=== PATIENT | female | born 1975 | race Caucasian/White ===

== ENCOUNTER 2016-10-11 05:31 | Inpatient (IN) | payer BC ==
--- NOTE | 2016-10-10 22:19 | PCM.LDHP ---
L&D History of Present Illness - General Date of Service: 10/10/16 Admit Problem/Dx: Admission Diagnosis/Problem Admission Diagnosis/Problem 10/10/16 22:01 39-4/7 week intrauterine -breech presentation Source of Information: Patient History Limitations: Reports: No Limitations - History of Present Illness Introduction:: Yara is a 41-year-old 1 para 0 white female who is due on 10/14/2016 with a stone, viable, intrauterine . She was seen on 10/08/2016 and found to have a baby in a breech presentation on ultrasound done for biophysical profile. Discussion was held with patient concerning alternatives of delivery including vaginal breech delivery, external cephalic version with cephalic delivery if successful and primary lower uterine segment transverse section. The options, the risks, benefits, limitations and follow-up were all discussed in detail with the patient and her significant other. They appear to understand and wish to proceed with a primary section. 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 Patient is using no control to time conception. She has cycles that are every 28 days. Menarche age 12. 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 Surgery was done to remove a venereal warts. has been relatively unremarkable. She has risk factors of gastric bypass surgery, group B strep screen positive, history of smoking in early , O- blood type and an abnormal Pap smear early on. She is made good fundal height growth during the course of the with her last fundal height being at 39 cm. Weight gain has been from approximately 186 pounds to 227 pounds for a 41 pound weight gain. Her vital signs of in stable until the day prior to the section which time they were borderline normal. Her laboratory testing in includes blood which is O- with a negative antibody screen. First trimester laboratory testing showed hemoglobin 13.7 and a platelet count of 214,000. She is rubella immune. RPR is nonreactive. Hepatitis B and HIV assays were both negative. Gonorrhea and chlamydia tests were negative. Second trimester laboratory tests included a hemoglobin of 12.8normal platelet counts of 165,000. Patient had RhoGAM given on 07/08/2018. Group B strep screen is positive. Allergies: Sulfa drugs, dust, animal-dander/dogs. Pollan, mold. Medications: 1. Desvenlaxine succinate ER 50 mg tablets daily 2. Omeprazole 20 mg delayed release when necessary 3. Advair discus 35800 micrograms/dose inhaler duration aerosol powder breath activated 4. Tylenol 325 mg orally daily. 5. Zyrtec 10 mg daily 6. B complex vitamins 7. Multivitamins 8. Iron 4 months iron sulfate 325 mg daily 9. Vitamin D 3 tablets Past medical history: 1. Obesitystatus post gastric bypass surgery 2007 and prepped 2. Prediabetic history 3. Depressionon medication 4. Transfusion 2 units of blood 2005 after panniculectomy 5. Asthma 6. History of abnormal Pap smear 2006gentle warts removed Past surgical history: Gastric bypass surgery 2004 2. Gallbladder surgery 2004. 3. Panniculectomy 2005. 4. Oral surgery 1992. Family history: mother is alive with history of atrial fibrillation. Dad is alive with hypertension. One brother is alive and well. Maternal grandmother alive and well but has had some heart disease problems. Internal grandmothers old age. Paternal grandfather secondary to stroke and ruptured appendectomy. No bleeding, chronic, anesthesia her prepregnancy problems noted in the family Social history patient is single, lives in [place]. 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 She does not use any significant amounts of alcohol, drugs or tobacco. She had smoked in the early part of the . Review of systems: Skin negative patient has acne scarring on her face. Cardiovascular-unremarkableno history of exercise intolerance or chest pain Respiratory no asthma symptoms of significance noted now. No infectious symptoms noted. Breasts -deferred at this time having been done at the time of her first visit and found to be normal. Patient does plan to nurse. Abdomen is protruded principally with fundal height of 39 cm, baby in a breech presentation. This is confirmed by ultrasound with time of her last biophysical profile Cervical exam shows cervix to be 2 cm, 80% effaced, soft, posterior, -3 Extremities neurological exam shows varicosities in bilateral lower extremities , some edema is noted. Physical exam on last evaluation clinic patients blood pressure was 130/84- weight was 227, heart rate 141. Her weight at first visit was 186 with height of 5 feet 8 inches in a body mass index of 25.8. In general the patient is a well-developed, well-nourished, pleasant female stated age in no acute distress. Skin is warm and dry without lesions HEENT, neck and back Macoupin's Lungs are clear with good breath sounds in all lung warren. Cardiovascular exam shows regular and rhythm. Abdomen is protruded principally final of 39 cm. Baby and breech presentation. Cervix as above. Extremities neurological exam with the varicosities noted and some edema present. Assessment: 1. 39-4/7 week intrauterine , breech presentation by ultrasound done for presentation on 10/09/2007. We'll check patient's presentation with ultrasound on the morning of surgery 2. Risk factors for surgery include history of previous surgery, obesity. 3. risk factors include history of obesity, Rh- status, depression history, asthma history, status post bariatric surgery 4. Patient desires to nurse 5. Patient has selected a regional block-spinal block-4 anesthesia. Plan: 1. Primary low uterine segment transverse section through a high fan still skin scar which is actually her panniculectomy scar. The procedure, risks , benefits, potential complications including anesthesia concerns, bleeding, infection, injury, blood clots, DVT are all discussed with patient. She appears to understand, which proceed and signed the consent. 2. DVT prophylaxis with SCDs 3. Infection prophylaxis with Ancef 2 g IV preoperatively. 4. 4. Poor Irwin behavior 5. Laborer Driver be present for delivery. 6. Preoperative diagnoses consist of CBC, type and screen, and urinalysis. - Related Data Allergies/Adverse Reactions: Allergies Allergy/AdvReac Type Severity Reaction Status Date / Time pollen extracts Allergy Cannot Verified 08/02/15 19:13 Remember Sulfa (Sulfonamide Allergy Hives Verified 08/02/15 19:13 Antibiotics) Home Medications: Home Meds Desvenlafaxine [Pristiq] 100 mg PO DAILY 05/04/15 [History] Ferrous Sulfate [Iron] 1 tab PO DAILY 05/04/15 [History] Fluticasone/Salmeterol [Advair 100-50] 1 puff INH BID 05/04/15 [History] lamoTRIgine [Lamictal] 200 mg PO BID 05/04/15 [History] Past Medical History HEENT History: Reports: Impaired Vision Respiratory History: Reports: Asthma Psychiatric History: Reports: Anxiety, Depression Other Psychiatric History: RECEIVING TREATMENT Hematologic History: Reports: Anemia, Iron Deficiency - Infectious Disease History Infectious Disease History: Reports: Chicken Pox - Past Surgical History GI Surgical History: Reports: Bariatric Procedure, Cholecystectomy Social & Family History - Family History Family Medical History: Noncontributory - Tobacco Use Smoking Status *Q: Light Tobacco Smoker (Smokes approximately 10 cigarettes per day.) Years of Tobacco use: 7 Packs/Tins Daily: 0.5 - Recreational Drug Use Recreational Drug Use: No - Living Situation & Occupation Occupation: Employed H&P Review of Systems - Review of Systems: Review Of Systems: See Below L&D Exam - Exam Exam: See Below - Vital Signs Weight: 77.111 kg Problem List Initiated/Reviewed/Updated: Yes Assessment/Plan Comment:: Assessment: 1. 39-4/7 week intrauterine , breech presentation, desire for primary lower uterine segment transverse section. 2. Risk factors for the including obesity, history of depression, history of gastric bypass surgery, history of asthma. 3. Patient desires nurse 4. Patient is up-to-date concerning her labs Plan: 1. Primary lower uterine segment transverse section through Pfannenstiel skin incision. New graft 2. DVT prophylaxis SCDs 3. Infection prophylaxis with Ancef 2 g IV preop 4. Routine preoperative labs including CBC, type and screen, urinalysis.
[~2016-10-11 05:31] MED LIST: Lactated Ringers 1,000 ML IV SCH; Sodium Chloride 0.9% 10 ML Syringe FLUSH PRN
[2016-10-11] MEDS ORDERED: Bupivacaine 0.5% 30 ML SDV ONE (06:50)
[2016-10-11] MEDS ORDERED: ceFAZolin 2 GM in Premix Bag 1 BAG IV ONE (07:00)
[2016-10-11] MEDS ORDERED: Citric Acid/Sodium Citrate Solution 30 ML Cup PO ONE (07:00)
[2016-10-11] MEDS ORDERED: Metoclopramide 10 MG/2 ML SDV IVPUSH ONE (07:00)
[2016-10-11] MEDS ORDERED: Ketorolac 30 MG/ML SDV ONE (07:11)
[2016-10-11] MEDS ORDERED: Ondansetron 4 MG/2 ML SDV ONE (07:11)
[2016-10-11] MEDS ORDERED: Oxytocin 10 Units/1 ML SDV ONE (07:11)
[2016-10-11] MEDS ORDERED: ceFAZolin 1 GM Vial ONE (07:12)
[2016-10-11] MEDS ORDERED: Morphine PF 10 MG/10 ML SDV ONE (07:12)
--- NOTE | 2016-10-11 07:27 | PCM.PREANE ---
Preanesthetic Assessment - Procedure Proposed Procedure: section - Anesthesia/Transfusion/Family Hx Anesthesia History: Prior Anesthesia Without Reaction Family History of Anesthesia Reaction: No Transfusion History: Prior Transfusion Without Reaction Intubation History: Unknown - Review of Systems General: Chills (Chilled this AM) Pulmonary: Shortness of Breath, Wheezing, Cough, Other (Asthma) Cardiovascular: No Symptoms Gastrointestinal: Diarrhea (D/t ), Other (GERD d/t ) Neurological: Headache (Current headache) Other: Reports: Depression, Anxiety - Physical Assessment NPO Status Date: 10/10/16 NPO Status Time: 19:30 O2 Sat by Pulse Oximetry: 100 Respiratory Rate: 16 Vital Signs: Last Vital Signs Temp 36.6 C 10/11/16 00:41 Pulse 67 10/11/16 00:41 Resp 16 10/11/16 00:41 BP 129/86 10/11/16 00:41 Pulse Ox 100 10/11/16 00:41 Height: 1.73 m Weight: 102.965 kg ASA Class: 2 Mental Status: Alert & Oriented x3 Airway Class: Mallampati = 1 Dentition: Reports: Normal Dentition Thyro-Mental Finger Breadths: 3 Mouth Opening Finger Breadths: 3 ROM/Head Extension: Full Lungs: Clear to auscultation, Normal respiratory effort Cardiovascular: Regular Rate, Regular Rhythm, No Murmurs - Lab Values: Platelets 170, labs reviewed and ok to proceed - Allergies Allergies/Adverse Reactions: Allergies Allergy/AdvReac Type Severity Reaction Status Date / Time pollen extracts Allergy Cannot Verified 08/02/15 19:13 Remember Sulfa (Sulfonamide Allergy Hives Verified 08/02/15 19:13 Antibiotics) - Acknowledgements Anesthesia Type Planned: Spinal Pt an Appropriate Candidate for the Planned Anesthesia: Yes Alternatives and Risks of Anesthesia Discussed w Pt/Guardian: Yes Pt/Guardian Understands and Agrees with Anesthesia Plan: Yes PreAnesthesia Questionnaire HEENT History: Reports: Impaired Vision, Other (See Below) Other HEENT History: wears glasses Respiratory History: Reports: Asthma, Other (See Below) Other 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 Pt ahs not seen Dr Garcia yet Endocrine/Metabolic History: Reports: Other (See Below) Other Endocrine/Metabolic History: pre DM before gastric surgery Hematologic History: Reports: Anemia, Blood Transfusion(s), Iron Deficiency - Infectious Disease History Infectious Disease History: Reports: Chicken Pox - Past Surgical History GI Surgical History: Reports: Bariatric Procedure, Cholecystectomy Dermatological Surgical History: Reports: None - SUBSTANCE USE Tobacco Use Within Last Twelve Months: Cigarettes Days Per Week of Alcohol Use: 0 Number of Drinks Per Day: 0 Total Drinks Per Week: 0 Recreational Drug Use History: No - HOME MEDS Home Medications: Home Meds Desvenlafaxine [Pristiq] 100 mg PO DAILY 05/04/15 [History] Ferrous Sulfate [Iron] 1 tab PO DAILY 05/04/15 [History] Fluticasone/Salmeterol [Advair 100-50] 1 puff INH BID 05/04/15 [History] lamoTRIgine [Lamictal] 200 mg PO BID 05/04/15 [History] - CURRENT (IN HOUSE) MEDS Current Meds: Current Medications Lactated Ringer's (Ringers, Lactated) 1,000 mls @ 125 mls/hr IV ASDIRECTED BENNY Last Admin: 10/11/16 07:19 Dose: 999 mls/hr Cefazolin Sodium/Dextrose 2 gm (/ Premix) 50 mls @ 100 mls/hr IV ONETIME ONE Stop: 10/11/16 07:29 Sodium Chloride (Saline Flush) 10 ml FLUSH ASDIRECTED PRN PRN Reason: Keep Vein Open Discontinued Medications Bupivacaine HCl (Marcaine 0.5%) Confirm Administered Dose 30 ml .ROUTE .STK-MED ONE Stop: 10/11/16 06:51 Cefazolin Sodium (Ancef) Confirm Administered Dose 2 gm .ROUTE .STK-MED ONE Stop: 10/11/16 07:13 Citric Acid/Sodium Citrate (Bicitra Solution) 30 ml PO ONETIME ONE Stop: 10/11/16 07:01 Last Admin: 10/11/16 07:19 Dose: 30 ml Ketorolac Tromethamine (Toradol) Confirm Administered Dose 30 mg .ROUTE .STK- MED ONE Stop: 10/11/16 07:12 Metoclopramide HCl (Reglan) 10 mg IVPUSH ONETIME ONE Stop: 10/11/16 07:01 Morphine Sulfate (Duramorph Pf) Confirm Administered Dose 10 mg .ROUTE .STK-MED ONE Stop: 10/11/16 07:13 Ondansetron HCl (Zofran) Confirm Administered Dose 4 mg .ROUTE .STK-MED ONE Stop: 10/11/16 07:12 Oxytocin (Pitocin) Confirm Administered Dose 20 unit .ROUTE .STK-MED ONE Stop: 10/11/16 07:12
[2016-10-11] MEDS ORDERED: Lidocaine 1% 2 ML ONE ×2 (08:33→08:51)
[2016-10-11] MEDS ORDERED: Propofol 200 MG/20 ML SDV ONE (08:35)
[2016-10-11] MEDS ORDERED: Succinylcholine/Normal Saline 100 MG/5 ML Syringe ONE (08:51)
[2016-10-11] MEDS ORDERED: fentaNYL 250 MCG/5 ML SDV ONE (09:05)
[2016-10-11] MEDS ORDERED: HYDROmorphone 1 MG/ML Syringe ONE (09:05)
[2016-10-11] MEDS ORDERED: Dexamethasone 4 MG/ML SDV ONE (09:24)
--- NOTE | 2016-10-11 09:28 | PCM.OPNOTE ---
- General Post-Op/Procedure Note Date of Surgery/Procedure: 10/11/16 Operative Procedure(s): Primary lower uterine segment transverse section through Pfannenstiel skin incision Findings: Patient has had a previous panniculectomy with significant scarring in the skin and subcutaneous area. Permanent sutures present in the subcutaneous area. Ears tubes ovaries within normal limits for term . Amniotic fluid clear. Baby is in a double footling breech presentation. Back was anterior. Estimated blood loss: 500 mL Urine output: 50 mL. Surgery duration: 26 minutes Complications: None Baby was a male infant delivered at 0852 hrs. on 10/11/2016 with Apgars of 7 and 9 and weight of 5 lbs. 12 oz. Pre Op Diagnosis: 39 week intrauterine , breech presentation Post-Op Diagnosis: Same with delivery of a viable, 7 lbs. 12 oz. male infant with Apgars of 7 and 9 at 0852 hrs. on 10/11/2016 Anesthesia Technique: General ET tube, Local Other Anesthesia Type: Marcaine 0.5%20 mL Primary Surgeon: Jos Kelly Secondary Surgeon: Raissa Ro Anesthesia Provider: Janie Moore Fluid Replacement, Intraop: 1,900 Output, Urine Amount: 50 EBL in mLs: 500 Drain/Tube Comments:: Indwelling bladder catheter Complications: None Condition: Good Free Text/Narrative:: Surgery duration: 26 minutes Procedure: The patient was taken to the operating room and placed in a sitting position on the operating table. Several attempts were made to do a spinal block but these were unsuccessful and decision was made to proceed to general anesthesia. Patient received 2 g of Ancef preoperatively for infection prophylaxis and had sequential compression stockings in place for DVT prophylaxis. She was put in the supine position on the operating table with a wedge under her right side to facilitate left lateral slant and uterine perfusion. The patient's prepped and draped in usual fashion Strong catheter was placed. The incision was made removing the old panniculectomy scar mid abdomen. Incision was carried down through skin subcutaneous layers using sharp dissection the fascia was undermined superiorly and inferiorly to allow for adequate operating room. The recti muscles midline. At this point the dissected. Peritoneal cavity was entered longitudinally taking care to avoid bowel and bladder. Bladder blade is placed. Lower uterine segment was visualized and incised transversely developing a bladder flap. The myometrium was incised transversely to the level of the amniotic sac. The incision was extended bilaterally in a blunt fashion and the amniotic sac was ruptured resulting in clear amniotic fluid. baby's legs were brought forth through the incision and baby was completely delivered using a complete breech extraction technique. No difficulties were encountered. The cord was clamped 2 cut and baby was handed off to attending identification clerk Dr. joy. Cord blood was obtained. The center was removed ensuring removal wall fragments. The uterus was exteriorized and closed in a routine fashion. First layer running locked layer of 0 Monocryl. Second was a running locked layer of 0 Monocryl in a vertical mattress suture fashion. Hemostasis was confirmed at this point. The uterus was placed back in the abdominal cavity. Lateral gutters cleared of all blood. Small bleeder was noted admitted incision was controlled with a [id number] suture of 0 Monocryl. Hemostasis was confirmed at this point. The anterior abdominal wall was then closed. Fascia was closed with #1 PDS from angle to angle. Subcutaneous area was closed with 5 interrupted 0 Monocryl sutures. Skin was closed with a running subcuticular stitch of 3-0 Monocryl. It was further approximated with Prineo mesh/glue. Uterus was massaged to ensure removal of old blood blood vaginally. It should be noted the cervix was 2+ and is dilated which was felt to be adequate to allow egress of blood. The patient was awakened from general endotracheal anesthesia. She tolerated the procedure well and left the operating room in satisfactory condition
[2016-10-11] MEDS ORDERED: fentaNYL 100 MCG/2 ML SDV IVPUSH PRN (09:38)
[2016-10-11] MEDS ORDERED: diphenhydrAMINE 50 MG/ML SDV IVPUSH PRN ×2 (09:38→10:51)
[2016-10-11] MEDS ORDERED: Ondansetron 4 MG/2 ML SDV IVPUSH PRN (09:38)
--- NOTE | 2016-10-11 09:42 | PCM.POSTAN ---
POST ANESTHESIA ASSESSMENT - MENTAL STATUS Mental Status: alert, oriented - VITAL SIGNS Pulse Rate: 74 SaO2: 99 Resp Rate: 11 Blood Pressure: 146/86 Temperature: 36.0 C - RESPIRATORY Respiratory Status: respiratory rate WNL, airway patent, O2 saturation stable, supplemental oxygen - CARDIOVASCULAR CV Status: pulse rate WNL, blood pressure stable - GASTROINTESTINAL GI Status: no symptoms - PAIN Pain Score: 0 - POST OP HYDRATION Hydration Status: adequate & stable
[2016-10-11] MEDS ORDERED: HYDROmorphone 0.5 MG/0.5 ML Syringe IVPUSH PRN (09:45)
[2016-10-11] MEDS ORDERED: Docusate Sodium 100 MG Cap PO PRN (10:51)
[2016-10-11] MEDS ORDERED: Lanolin 100% Cream 7 GM Tube TOP PRN (10:51)
[2016-10-11] MEDS ORDERED: Dextrose 5%-Lactated Ringers 1,000 ML IV SCH ×2 (10:51→14:45)
[2016-10-11] MEDS ORDERED: ePHEDrine 50 MG/ML SDV IVPUSH PRN (10:51)
[2016-10-11] MEDS ORDERED: Ondansetron 4 MG/2 ML SDV IV PRN (10:51)
[2016-10-11] MEDS ORDERED: Dextrose 5%-0.45% NaCl 1,000 ML IV SCH (10:51)
[2016-10-11] MEDS ORDERED: Naloxone 0.4 MG/ML SDV IVPUSH PRN (10:51)
[2016-10-11] MEDS: Simethicone 80 MG Tab.Chew PO SCH ×4 (12:42→22:57)
[2016-10-11] MEDS: Albuterol 6.7 GM Inhaler INH PRN ×2 (13:24→19:08)
[2016-10-11] MEDS: Formoterol/Mometasone 100-5 MCG 8.8 GM Inhaler IH SCH (13:24)
[2016-10-11] MEDS ORDERED: Sodium Chloride 0.9% 1,000 ML IV SCH (14:45)
[2016-10-11] MEDS: Ibuprofen 800 MG Tab PO SCH ×2 (14:56→22:57)
[2016-10-11] MEDS: Acetaminophen/oxyCODONE 325-5 MG Tab PO PRN ×2 (14:57→20:08)
[2016-10-11] MEDS ORDERED: Sodium Chloride 0.9% 1,000 ML IV ONE (19:00)
--- NOTE | 2016-10-11 20:34 | PCM.PN ---
- General Info Date of Service: 10/11/16 Subjective Update: 41 year old female postop 12 hours from uncomplicated section complaining of severe shortness of breath, right back and chest pain and some dizziness. Has had somewhat diminished urine output since surgery. Approximately 100 ml/4 hours. Over last 2.5 hours has been 100 which is slightly improved from prior. - Review of Systems General: Reports: Weakness HEENT: Reports: no symptoms Pulmonary: Reports: shortness of breath, pleuritic chest pain Cardiovascular: Reports: Chest Pain Musculoskeletal: Reports: shoulder pain - Patient Data Vitals - most recent: Last Vital Signs Temp 36.9 C 10/11/16 17:06 Pulse 86 10/11/16 17:06 Resp 18 10/11/16 17:06 BP 110/73 10/11/16 17:06 Pulse Ox 98 10/11/16 19:09 Weight - most recent: 102.965 kg I&O - last 24 hours: Intake & Output 10/11/16 10/11/16 10/11/16 06:59 14:59 22:59 Intake Total 2350 2780 Output Total 250 100 Balance 2100 2680 Lab Results last 24 hrs: Laboratory Results - last 24 hr 10/11/16 Range/Units 19:00 WBC 13.63 H (3.98-10.04) K/mm3 RBC 3.18 L (3.98-5.22) M/mm3 Hgb 10.4 L (11.2-15.7) gm/L Hct 30.7 L (34.1-44.9) % MCV 96.5 H (79.4-94.8) fl MCH 32.7 H (25.6-32.2) pg MCHC 33.9 (32.2-35.5) g/dl RDW Std Deviation 42.7 (36.4-46.3) fL Plt Count 201 (182-369) K/mm3 MPV 9.3 L (9.4-12.3) fl Neut % (Auto) 81.6 H (34.0-71.1) % Lymph % (Auto) 11.4 L (19.3-51.7) % [place] % (Auto) 6.5 (4.7-12.5) % Eos % (Auto) 0 L (0.7-5.8) Baso % (Auto) 0.1 (0.1-1.2) % Neut # (Auto) 11.14 H (1.56-6.13) K/mm3 Lymph # (Auto) 1.55 (1.18-3.74) K/mm3 [place] # (Auto) 0.88 H (0.24-0.36) K/mm3 Eos # (Auto) 0.00 L (0.04-0.36) K/mm3 Baso # (Auto) 0.01 (0.01-0.08) K/mm3 Med Orders - Current: Current Medications Albuterol (Proventil Hfa) 0 gm INH QID PRN PRN Reason: Shortness of Breath Last Admin: 10/11/16 19:08 Dose: 2 puff Diphenhydramine HCl (Benadryl) 25 mg IVPUSH Q6H PRN PRN Reason: Itching or Nausea Docusate Sodium (Colace) 100 mg PO Q12H PRN PRN Reason: Constipation Last Admin: 10/11/16 20:08 Dose: 100 mg Emollient Ointment (Lansinoh Hpa) 0 gm TOP ASDIRECTED PRN PRN Reason: Sore Nipples Ephedrine Sulfate (Ephedrine Sulfate) 5 mg IVPUSH SEECOMMENT PRN PRN Reason: SEE COMMENTS Dextrose/Sodium Chloride (Dextrose 5%-1/2 Ns) 1,000 mls @ 125 mls/hr IV ASDIRECTED [facility] Dextrose/Lactated Ringer's (Dextrose 5%-Lactated Ringers) 1,000 mls @ 150 mls/ hr IV ASDIRECTED [facility] Ibuprofen (Motrin) 800 mg PO Q8H [facility] Last Admin: 10/11/16 14:56 Dose: 800 mg Mometasone Furoate/Formoterol Fumar (Dulera 100-5 Mcg) 2 puff IH DAILY [facility] Last Admin: 10/11/16 13:24 Dose: 2 puff Naloxone HCl (Narcan) 0.1 mg IVPUSH SEECOMMENT PRN PRN Reason: Respiratory Depression Ondansetron HCl (Zofran) 4 mg IV Q4H PRN PRN Reason: Nausea/Vomiting Oxycodone/Acetaminophen (Percocet 325-5 Mg) 2 tab PO Q4H PRN PRN Reason: Pain Last Admin: 10/11/16 20:08 Dose: 2 tab Simethicone (Simethicone) 80 mg PO PCBED [facility] Last Admin: 10/11/16 18:20 Dose: 80 mg Discontinued Medications Bupivacaine HCl (Marcaine 0.5%) Confirm Administered Dose 30 ml .ROUTE .STK-MED ONE Stop: 10/11/16 06:51 Last Admin: 10/11/16 08:49 Dose: 20 ml Cefazolin Sodium (Ancef) Confirm Administered Dose 2 gm .ROUTE .STK-MED ONE Stop: 10/11/16 07:13 Citric Acid/Sodium Citrate (Bicitra Solution) 30 ml PO ONETIME ONE Stop: 10/11/16 07:01 Last Admin: 10/11/16 07:19 Dose: 30 ml Dexamethasone (Dexamethasone) Confirm Administered Dose 4 mg .ROUTE .STK-MED ONE Stop: 10/11/16 09:25 Diphenhydramine HCl (Benadryl) 25 mg IVPUSH Q6H PRN PRN Reason: pruritis Stop: 10/11/16 12:00 Fentanyl (Sublimaze) Confirm Administered Dose 250 mcg .ROUTE .STK-MED ONE Stop: 10/11/16 09:06 Fentanyl (Sublimaze) 50 mcg IVPUSH Q5M PRN PRN Reason: Pain Stop: 10/11/16 12:00 Hydromorphone HCl (Dilaudid) Confirm Administered Dose 1 mg .ROUTE .STK-MED ONE Stop: 10/11/16 09:06 Hydromorphone HCl (Dilaudid) 0.5 mg IVPUSH Q15M PRN PRN Reason: Severe Pain Stop: 10/11/16 10:01 Lactated Ringer's (Ringers, Lactated) 1,000 mls @ 125 mls/hr IV ASDIRECTED [facility] Last Admin: 10/11/16 07:19 Dose: 999 mls/hr Cefazolin Sodium/Dextrose 2 gm (/ Premix) 50 mls @ 100 mls/hr IV ONETIME ONE Stop: 10/11/16 07:29 Last Admin: 10/11/16 14:19 Dose: Not Given Lidocaine HCl (Xylocaine-Mpf 1%) Confirm Administered Dose 2 mls @ as directed .ROUTE .STK-MED ONE Stop: 10/11/16 08:34 Lidocaine HCl (Xylocaine-Mpf 1%) Confirm Administered Dose 2 mls @ as directed .ROUTE .STK-MED ONE Stop: 10/11/16 08:52 Dextrose/Lactated Ringer's (Dextrose 5%-Lactated Ringers) 1,000 mls @ 125 mls/ hr IV ASDIRECTED [facility] Stop: 10/11/16 18:50 Last Admin: 10/11/16 13:45 Dose: 125 mls/hr Sodium Chloride (Normal Saline) 1,000 mls @ 999 mls/hr IV .ONETIME [facility] Last Admin: 10/11/16 14:58 Dose: 999 mls/hr Sodium Chloride (Normal Saline) 1,000 mls @ 999 mls/hr IV ONETIME ONE Stop: 10/11/16 20:00 Last Admin: 10/11/16 18:50 Dose: 999 mls/hr Ketorolac Tromethamine (Toradol) Confirm Administered Dose 30 mg .ROUTE .STK- MED ONE Stop: 10/11/16 07:12 Metoclopramide HCl (Reglan) 10 mg IVPUSH ONETIME ONE Stop: 10/11/16 07:01 Last Admin: 10/11/16 19:33 Dose: Not Given Morphine Sulfate (Duramorph Pf) Confirm Administered Dose 10 mg .ROUTE .STK-MED ONE Stop: 10/11/16 07:13 Ondansetron HCl (Zofran) Confirm Administered Dose 4 mg .ROUTE .STK-MED ONE Stop: 10/11/16 07:12 Ondansetron HCl (Zofran) 4 mg IVPUSH ONETIME PRN PRN Reason: Nausea/Vomiting Stop: 10/11/16 12:00 Oxytocin (Pitocin) Confirm Administered Dose 20 unit .ROUTE .STK-MED ONE Stop: 10/11/16 07:12 Propofol (Diprivan 20 Ml) Confirm Administered Dose 200 mg .ROUTE .STK-MED ONE Stop: 10/11/16 08:36 Sodium Chloride (Saline Flush) 10 ml FLUSH ASDIRECTED PRN PRN Reason: Keep Vein Open Succinylcholine Chloride (Succinylcholine In Ns Pf) Confirm Administered Dose 100 mg .ROUTE .STK-MED ONE Stop: 10/11/16 08:52 - Exam General: alert, oriented HEENT: Pupils equal, Pupils reactive, EOMI, Mucous membr. moist/pink Neck: supple Lungs: Clear to auscultation, Normal respiratory effort Cardiovascular: Regular Rate, Regular Rhythm Abdomen: bowel sounds present, soft, no distension, tenderness. No: rigidity, rebound, guarding, distension (Female) Exam: Normal External Exam, Normal Speculum Exam, Normal Bimanual Exam Extremities: no edema Skin: warm, dry, intact Wound/Incisions: healing well Neurological: no new focal deficit Psy/Mental Status: alert, normal affect, normal mood - Problem List & Annotations (1) delivery delivered SNOMED Code(s): 320402318 Code(s): O82 - ENCOUNTER FOR DELIVERY WITHOUT INDICATION Status: Acute Current Visit: Yes (2) Shortness of breath SNOMED Code(s): 841754641 Code(s): R06.02 - SHORTNESS OF BREATH Status: Acute Current Visit: Yes (3) Chest pain SNOMED Code(s): 63533386 Code(s): R07.9 - CHEST PAIN, UNSPECIFIED Status: Acute Current Visit: Yes - Problem List Review Problem List Initiated/Reviewed/Updated: Yes - My Orders Last 24 Hours: My Active Orders 10/11/16 20:27 Ang Abdomen [CT] Routine CTA Chest W WO Contrast [Ang Chest] [CT] Routine 10/11/16 20:28 EKG Documentation Completion [RC] STAT - Assessment Assessment:: Post operative with sudden onset shortness of breath and chest/shoulder pain. EKG, CT PE protocol and abd/pelvis for concern of bleeding. CBC appropriate postop drop Differential includes cardiac causes, PE, reflux, intra-ab hemorrhage.
[2016-10-11] MEDS ORDERED: Sodium Chloride 0.9% 10 ML Syringe FLUSH ONE (21:02)
[2016-10-11] MEDS ORDERED: Iopamidol 755 Mg/ML 100 ML Bottle IVPUSH ONE (21:02)
--- NOTE | 2016-10-11 22:29 | PCM.SN ---
- Free Text/Narrative Note: CT chest negative EKG normal CT abd with very small fluid collection under diaphragm. Likely cause of referred pain. Patient informed of and reassured.
[2016-10-12] MEDS: Acetaminophen/oxyCODONE 325-5 MG Tab PO PRN ×5 (00:55→22:24)
--- NOTE | 2016-10-12 08:20 | PCM.PNPP ---
- General Info Date of Service: 10/12/16 Subjective Update: Better overnight. Another episode of shortness of breath after ibuprofen. Will stop ibuprofen. Functional Status: Reports: pain controlled - Review of Systems General: Reports: No Symptoms HEENT: Reports: no symptoms Pulmonary: Reports: no symptoms Cardiovascular: Reports: No Symptoms Gastrointestinal: Reports: No symptoms Genitourinary: Reports: no symptoms Musculoskeletal: Reports: no symptoms Skin: Reports: no symptoms Neurological: Reports: No Symptoms Psychiatric: Reports: no symptoms - General Info Date of Service: 10/12/16 - Patient Data Vital Signs - most recent: Last Vital Signs Temp 37.0 C 10/11/16 23:09 Pulse 70 10/11/16 23:09 Resp 18 10/11/16 23:09 BP 104/66 10/11/16 23:09 Pulse Ox 97 10/11/16 23:09 Weight - most recent: 102.965 kg I&O - last 24 hours: Intake & Output 10/11/16 10/12/16 10/12/16 22:59 06:59 14:59 Intake Total 3779 500 Output Total 400 325 Balance 3379 175 Lab Results - last 24 hrs: Laboratory Results - last 24 hr 10/11/16 10/12/16 Range/Units 19:00 05:40 WBC 13.63 H 10.49 H (3.98-10.04) K/mm3 RBC 3.18 L 2.53 L (3.98-5.22) M/mm3 Hgb 10.4 L 8.5 L (11.2-15.7) gm/L Hct 30.7 L 24.6 L (34.1-44.9) % MCV 96.5 H 97.2 H (79.4-94.8) fl MCH 32.7 H 33.6 H (25.6-32.2) pg MCHC 33.9 34.6 (32.2-35.5) g/dl RDW Std Deviation 42.7 42.6 (36.4-46.3) fL Plt Count 201 152 L (182-369) K/mm3 MPV 9.3 L 9.7 (9.4-12.3) fl Neut % (Auto) 81.6 H 62.3 (34.0-71.1) % Lymph % (Auto) 11.4 L 28.5 (19.3-51.7) % [place] % (Auto) 6.5 8.2 (4.7-12.5) % Eos % (Auto) 0 L 0.6 L (0.7-5.8) Baso % (Auto) 0.1 0.1 (0.1-1.2) % Neut # (Auto) 11.14 H 6.54 H (1.56-6.13) K/mm3 Lymph # (Auto) 1.55 2.99 (1.18-3.74) K/mm3 [place] # (Auto) 0.88 H 0.86 H (0.24-0.36) K/mm3 Eos # (Auto) 0.00 L 0.06 (0.04-0.36) K/mm3 Baso # (Auto) 0.01 0.01 (0.01-0.08) K/mm3 Med Orders - Current: Current Medications Albuterol (Proventil Hfa) 0 gm INH QID PRN PRN Reason: Shortness of Breath Last Admin: 10/11/16 19:08 Dose: 2 puff Diphenhydramine HCl (Benadryl) 25 mg IVPUSH Q6H PRN PRN Reason: Itching or Nausea Docusate Sodium (Colace) 100 mg PO Q12H PRN PRN Reason: Constipation Last Admin: 10/11/16 20:08 Dose: 100 mg Emollient Ointment (Lansinoh Hpa) 0 gm TOP ASDIRECTED PRN PRN Reason: Sore Nipples Ephedrine Sulfate (Ephedrine Sulfate) 5 mg IVPUSH SEECOMMENT PRN PRN Reason: SEE COMMENTS Dextrose/Sodium Chloride (Dextrose 5%-1/2 Ns) 1,000 mls @ 125 mls/hr IV ASDIRECTED [facility] Last Admin: 10/12/16 04:06 Dose: 125 mls/hr Dextrose/Lactated Ringer's (Dextrose 5%-Lactated Ringers) 1,000 mls @ 150 mls/ hr IV ASDIRECTED [facility] Mometasone Furoate/Formoterol Fumar (Dulera 100-5 Mcg) 2 puff IH DAILY [facility] Last Admin: 10/11/16 13:24 Dose: 2 puff Naloxone HCl (Narcan) 0.1 mg IVPUSH SEECOMMENT PRN PRN Reason: Respiratory Depression Ondansetron HCl (Zofran) 4 mg IV Q4H PRN PRN Reason: Nausea/Vomiting Oxycodone/Acetaminophen (Percocet 325-5 Mg) 2 tab PO Q4H PRN PRN Reason: Pain Last Admin: 10/12/16 06:57 Dose: 2 tab Simethicone (Simethicone) 80 mg PO PCBED [facility] Last Admin: 10/11/16 22:57 Dose: 80 mg Discontinued Medications Bupivacaine HCl (Marcaine 0.5%) Confirm Administered Dose 30 ml .ROUTE .STK-MED ONE Stop: 10/11/16 06:51 Last Admin: 10/11/16 08:49 Dose: 20 ml Cefazolin Sodium (Ancef) Confirm Administered Dose 2 gm .ROUTE .STK-MED ONE Stop: 10/11/16 07:13 Citric Acid/Sodium Citrate (Bicitra Solution) 30 ml PO ONETIME ONE Stop: 10/11/16 07:01 Last Admin: 10/11/16 07:19 Dose: 30 ml Dexamethasone (Dexamethasone) Confirm Administered Dose 4 mg .ROUTE .STK-MED ONE Stop: 10/11/16 09:25 Diphenhydramine HCl (Benadryl) 25 mg IVPUSH Q6H PRN PRN Reason: pruritis Stop: 10/11/16 12:00 Fentanyl (Sublimaze) Confirm Administered Dose 250 mcg .ROUTE .STK-MED ONE Stop: 10/11/16 09:06 Fentanyl (Sublimaze) 50 mcg IVPUSH Q5M PRN PRN Reason: Pain Stop: 10/11/16 12:00 Hydromorphone HCl (Dilaudid) Confirm Administered Dose 1 mg .ROUTE .STK-MED ONE Stop: 10/11/16 09:06 Hydromorphone HCl (Dilaudid) 0.5 mg IVPUSH Q15M PRN PRN Reason: Severe Pain Stop: 10/11/16 10:01 Lactated Ringer's (Ringers, Lactated) 1,000 mls [facility] Last Admin: 10/11/16 07:19 Dose: 999 mls/hr Cefazolin Sodium/Dextrose 2 gm (/ Premix) 50 mls @ 100 mls/hr IV ONETIME ONE Stop: 10/11/16 07:29 Last Admin: 10/11/16 14:19 Dose: Not Given Lidocaine HCl (Xylocaine-Mpf 1%) Confirm Administered Dose 2 mls @ as directed .ROUTE .STK-MED ONE Stop: 10/11/16 08:34 Lidocaine HCl (Xylocaine-Mpf 1%) Confirm Administered Dose 2 mls @ as directed .ROUTE .STK-MED ONE Stop: 10/11/16 08:52 Dextrose/Lactated Ringer's (Dextrose 5%-Lactated Ringers) 1,000 mls @ 125 mls/ hr IV ASDIRECTED [facility] Stop: 10/11/16 18:50 Last Admin: 10/11/16 13:45 Dose: 125 mls/hr Sodium Chloride (Normal Saline) 1,000 mls @ 999 mls/hr IV .ONETIME [facility] Last Admin: 10/11/16 14:58 Dose: 999 mls/hr Sodium Chloride (Normal Saline) 1,000 mls @ 999 mls/hr IV ONETIME ONE Stop: 10/11/16 20:00 Last Admin: 10/11/16 18:50 Dose: 999 mls/hr Ibuprofen (Motrin) 800 mg PO Q8H [facility] Last Admin: 10/11/16 22:57 Dose: 800 mg Iopamidol (Isovue-370 (76%)) 100 ml IVPUSH ONETIME ONE Stop: 10/11/16 21:03 Last Admin: 10/11/16 21:44 Dose: 100 ml Ketorolac Tromethamine (Toradol) Confirm Administered Dose 30 mg .ROUTE .ST- MED ONE Stop: 10/11/16 07:12 Metoclopramide HCl (Reglan) 10 mg IVPUSH ONETIME ONE Stop: 10/11/16 07:01 Last Admin: 10/11/16 19:33 Dose: Not Given Morphine Sulfate (Duramorph Pf) Confirm Administered Dose 10 mg .ROUTE .STK-MED ONE Stop: 10/11/16 07:13 Ondansetron HCl (Zofran) Confirm Administered Dose 4 mg .ROUTE .STK-MED ONE Stop: 10/11/16 07:12 Ondansetron HCl (Zofran) 4 mg IVPUSH ONETIME PRN PRN Reason: Nausea/Vomiting Stop: 10/11/16 12:00 Oxytocin (Pitocin) Confirm Administered Dose 20 unit .ROUTE .STK-MED ONE Stop: 10/11/16 07:12 Propofol (Diprivan 20 Ml) Confirm Administered Dose 200 mg .ROUTE .STK-MED ONE Stop: 10/11/16 08:36 Sodium Chloride (Saline Flush) 10 ml FLUSH ASDIRECTED PRN PRN Reason: Keep Vein Open Sodium Chloride (Saline Flush) 10 ml FLUSH ONETIME ONE Stop: 10/11/16 21:03 Last Admin: 10/11/16 21:44 Dose: 10 ml Succinylcholine Chloride (Succinylcholine In Ns Pf) Confirm Administered Dose 100 mg .ROUTE .STK-MED ONE Stop: 10/11/16 08:52 - Interaction Disposition, : at Bedside Infant Interaction: Holding Support Person: Friend - Recovery Exam Fundal Tone: Firm Fundal Level: 1 Fingerbreadths Above Umbilicus Fundal Placement: Midline Lochia Amount: Scant Lochia Color: Rubra/Red Perineum Description: Edematous Episiotomy/Laceration: None Bladder Status: Indwelling Catheter in Place Urinary Elimination: Indwelling Catheter - Exam General: alert, oriented HEENT: Pupils equal Neck: supple Lungs: Clear to auscultation, Normal respiratory effort Cardiovascular: Regular Rate, Regular Rhythm Abdomen: bowel sounds present, soft, no tenderness, no distension Extremities: no edema Skin: warm, dry, intact Wound/Incisions: healing well Neurological: no new focal deficit Psy/Mental Status: alert, normal affect, normal mood - Problem List & Annotations (1) delivery delivered SNOMED Code(s): 945667736 Code(s): O82 - ENCOUNTER FOR DELIVERY WITHOUT INDICATION Status: Acute Current Visit: Yes (2) Shortness of breath SNOMED Code(s): 631360066 Code(s): R06.02 - SHORTNESS OF BREATH Status: Acute Current Visit: Yes (3) Chest pain SNOMED Code(s): 76205550 Code(s): R07.9 - CHEST PAIN, UNSPECIFIED Status: Acute Current Visit: Yes - Problem List Review Problem List Initiated/Reviewed/Updated: Yes - My Orders Last 24 Hours: My Active Orders 10/11/16 20:27 Abdomen Pelvis w Cont [CT] Routine CTA Chest W WO Contrast [Ang Chest] [CT] Routine - Assessment Assessment:: Doing well. Routine care. - Plan Plan:: Assessment: 1. 39-4/7 week intrauterine , breech presentation, desire for primary lower uterine segment transverse section. 2. Risk factors for the including obesity, history of depression, history of gastric bypass surgery, history of asthma. 3. Patient desires nurse 4. Patient is up-to-date concerning her labs Plan: 1. Primary lower uterine segment transverse section through Pfannenstiel skin incision. New graft 2. DVT prophylaxis SCDs 3. Infection prophylaxis with Ancef 2 g IV preop 4. Routine preoperative labs including CBC, type and screen, urinalysis.
--- NOTE | 2016-10-12 09:49 | PCM48HPAN ---
Post Anesthesia Note - EVALUATION WITHIN 48HRS OF ANESTHETIC Vital Signs in Normal Range: Yes Patient Participated in Evaluation: Yes Respiratory Function Stable: Yes Airway Patent: Yes Cardiovascular Function Stable: Yes Hydration Status Stable: Yes Pain Control Satisfactory: Yes Nausea and Vomiting Control Satisfactory: Yes Mental Status Recovered: Yes - COMMENTS/OBSERVATIONS Free Text/Narrative:: Pt stated her back was slightly tender from the multiple attempts of spinal access yesterday. Advised patient that back pain can persist up to 2 months but is usually gone in about a week or 2 in her case. Pt was up ambulating the halls and "feels good". No other complaints.
[2016-10-12] MEDS: FLUTICASONE INH SCH ×2 (10:07→20:32)
[2016-10-12] MEDS: SALMETEROL INH SCH ×2 (10:07→20:32)
[2016-10-12] MEDS: Simethicone 80 MG Tab.Chew PO SCH ×3 (12:44→22:49)
[2016-10-12] MEDS ORDERED: Albuterol 6.7 GM Inhaler INH PRN ×3 (17:35→17:48)
[2016-10-12] MEDS: Formoterol/Mometasone 100-5 MCG 8.8 GM Inhaler IH SCH (17:39)
[2016-10-13] MEDS: Fluticasone/Salmeterol 100-50 MCG Inhalation Powder 14/Diskus INH SCH ×2 (00:30→08:39)
[2016-10-13] MEDS: Acetaminophen/oxyCODONE 325-5 MG Tab PO PRN ×2 (01:52→07:29)
--- NOTE | 2016-10-13 08:13 | PCM.DCSUM1 ---
Discharge Summary - Hospital Course Brief History: Admited for primary for breech - Discharge Data Discharge Date: 10/13/16 Discharge Disposition: Home, Self-Care 01 Condition: Good - Discharge Diagnosis/Problem(s) (1) delivery delivered SNOMED Code(s): 736306725 ICD Code: O82 - ENCOUNTER FOR DELIVERY WITHOUT INDICATION Status: Acute Current Visit: Yes (2) Shortness of breath SNOMED Code(s): 979195706 ICD Code: R06.02 - SHORTNESS OF BREATH Status: Acute Current Visit: Yes (3) Chest pain SNOMED Code(s): 34312018 ICD Code: R07.9 - CHEST PAIN, UNSPECIFIED Status: Acute Current Visit: Yes - Patient Summary/Data Operative Procedure(s) Performed: Primary lower uterine segment transverse section through Pfannenstiel skin incision Hospital Course: Admitted for which was uncomplicated. Evening of POD0 had significant tachypnea and chest pain. History of asthma but worse than she had felt prior. CBC dropped. Evaluated for postop hemorrhage and PE. Negative workup. Eventually resolved with time and inhaler use. Some anxiety component as well. Thereafter unremarkable course. - Patient Instructions Diet: Usual Diet as Tolerated Activity: No Strenuous Activities Driving: May Drive Today Showering/Bathing: May Shower Wound/Incision Care: Keep Operative Site/Wound Site Clean and Dry Notify Provider of: Fever, Increased Pain, Swelling and Redness, Drainage, Nausea and/or Vomiting - Discharge Plan Home Medications: Home Meds Cetirizine [ZyrTEC] 1 tab PO DAILY 10/11/16 [History] Cholecalciferol (Vitamin D3) [Vitamin D3] 1 tab PO DAILY 10/11/16 [History] Desvenlafaxine Succinate [Desvenlafaxine Succinate ER] 1 tab PO DAILY 10/11/16 [ History] Ferrous Sulfate [Iron] 1 tab PO DAILY 10/11/16 [History] Fluticasone/Salmeterol [Advair Diskus 100-50] 1 puff .ROUTE DAILY 10/11/16 [ History] Multivitamin [Multi-Vitamin Daily] 1 tab PO DAILY 10/11/16 [History] Omeprazole 1 tab PO DAILY PRN 10/11/16 [History] Vitamin B Complex [B Complex] 1 tab DAILY 10/11/16 [History] Patient Handouts: Smoking Cessation, Tips for Success, [id number], Smoking Hazards - Discharge Summary/Plan Comment DC Time >30 min.: No - General Info Date of Service: 10/13/16 Functional Status: Reports: pain controlled - Review of Systems General: Reports: No Symptoms HEENT: Reports: no symptoms Pulmonary: Reports: no symptoms Cardiovascular: Reports: No Symptoms Gastrointestinal: Reports: No symptoms Genitourinary: Reports: no symptoms Musculoskeletal: Reports: no symptoms Skin: Reports: no symptoms Neurological: Reports: No Symptoms Psychiatric: Reports: no symptoms - Patient Data Vitals - Most Recent: Last Vital Signs Temp 36.8 C 10/13/16 04:39 Pulse 61 10/13/16 04:39 Resp 20 10/13/16 04:39 BP 110/71 10/13/16 04:39 Pulse Ox 97 10/13/16 04:39 Weight - Most Recent: 102.965 kg I&O - Last 24 hours: Intake & Output 10/12/16 10/13/16 10/13/16 22:59 06:59 14:59 Intake Total 1180 Output Total 600 500 Balance 580 -500 Lab Results - Last 24 hrs: Laboratory Results - last 24 hr 10/12/16 Range/Units 12:20 WBC 9.41 (3.98-10.04) K/mm3 RBC 2.53 L (3.98-5.22) M/mm3 Hgb 8.1 L (11.2-15.7) gm/L Hct 24.5 L (34.1-44.9) % MCV 96.8 H (79.4-94.8) fl MCH 32.0 (25.6-32.2) pg MCHC 33.1 (32.2-35.5) g/dl RDW Std Deviation 42.9 (36.4-46.3) fL Plt Count 153 L (182-369) K/mm3 MPV 9.0 L (9.4-12.3) fl Neut % (Auto) 65.9 (34.0-71.1) % Lymph % (Auto) 23.0 (19.3-51.7) % [place] % (Auto) 9.7 (4.7-12.5) % Eos % (Auto) 0.9 (0.7-5.8) Baso % (Auto) 0.1 (0.1-1.2) % Neut # (Auto) 6.21 H (1.56-6.13) K/mm3 Lymph # (Auto) 2.16 (1.18-3.74) K/mm3 [place] # (Auto) 0.91 H (0.24-0.36) K/mm3 Eos # (Auto) 0.08 (0.04-0.36) K/mm3 Baso # (Auto) 0.01 (0.01-0.08) K/mm3 Med Orders - Current: Current Medications Diphenhydramine HCl (Benadryl) 25 mg IVPUSH Q6H PRN PRN Reason: Itching or Nausea Docusate Sodium (Colace) 100 mg PO Q12H PRN PRN Reason: Constipation Last Admin: 10/11/16 20:08 Dose: 100 mg Emollient Ointment (Lansinoh Hpa) 0 gm TOP ASDIRECTED PRN PRN Reason: Sore Nipples Ephedrine Sulfate (Ephedrine Sulfate) 5 mg IVPUSH SEECOMMENT PRN PRN Reason: SEE COMMENTS Dextrose/Sodium Chloride (Dextrose 5%-1/2 Ns) 1,000 mls @ 125 mls/hr IV ASDIRECTED BENNY Last Admin: 10/12/16 04:06 Dose: 125 mls/hr Dextrose/Lactated Ringer's (Dextrose 5%-Lactated Ringers) 1,000 mls @ 150 mls/ hr IV ASDIRECTED BENNY Naloxone HCl (Narcan) 0.1 mg IVPUSH SEECOMMENT PRN PRN Reason: Respiratory Depression Ondansetron HCl (Zofran) 4 mg IV Q4H PRN PRN Reason: Nausea/Vomiting Oxycodone/Acetaminophen (Percocet 325-5 Mg) 2 tab PO Q4H PRN PRN Reason: Pain Last Admin: 10/13/16 07:29 Dose: 2 tab Fluticasone/Salmeterol (Advair Diskus 100-50) 1 puff INH BID [facility] Last Admin: 10/13/16 00:30 Dose: Not Given Simethicone (Simethicone) 80 mg PO PCBED [facility] Last Admin: 10/12/16 22:49 Dose: Not Given Discontinued Medications Albuterol (Proventil Hfa) 0 gm INH QID PRN PRN Reason: Shortness of Breath Last Admin: 10/11/16 19:08 Dose: 2 puff Albuterol (Proventil Hfa) 6.7 gm INH QID PRN PRN Reason: Shortness of Breath Albuterol (Proventil Hfa) 6.7 gm INH QID PRN PRN Reason: Shortness of Breath Stop: 10/12/16 21:01 Albuterol (Proventil Hfa) 0 gm INH QID PRN PRN Reason: Shortness of Breath Stop: 10/12/16 21:01 Last Admin: 10/12/16 17:40 Dose: 2 puff Bupivacaine HCl (Marcaine 0.5%) Confirm Administered Dose 30 ml .ROUTE .STK-MED ONE Stop: 10/11/16 06:51 Last Admin: 10/11/16 08:49 Dose: 20 ml Cefazolin Sodium (Ancef) Confirm Administered Dose 2 gm .ROUTE .STK-MED ONE Stop: 10/11/16 07:13 Citric Acid/Sodium Citrate (Bicitra Solution) 30 ml PO ONETIME ONE Stop: 10/11/16 07:01 Last Admin: 10/11/16 07:19 Dose: 30 ml Dexamethasone (Dexamethasone) Confirm Administered Dose 4 mg .ROUTE .STK-MED ONE Stop: 10/11/16 09:25 Diphenhydramine HCl (Benadryl) 25 mg IVPUSH Q6H PRN PRN Reason: pruritis Stop: 10/11/16 12:00 Fentanyl (Sublimaze) Confirm Administered Dose 250 mcg .ROUTE .STK-MED ONE Stop: 10/11/16 09:06 Fentanyl (Sublimaze) 50 mcg IVPUSH Q5M PRN PRN Reason: Pain Stop: 10/11/16 12:00 Hydromorphone HCl (Dilaudid) Confirm Administered Dose 1 mg .ROUTE .STK-MED ONE Stop: 10/11/16 09:06 Hydromorphone HCl (Dilaudid) 0.5 mg IVPUSH Q15M PRN PRN Reason: Severe Pain Stop: 10/11/16 10:01 Lactated Ringer's (Ringers, Lactated) 1,000 mls @ 125 mls/hr IV ASDIRECTED [facility] Last Admin: 10/11/16 07:19 Dose: 999 mls/hr Cefazolin Sodium/Dextrose 2 gm (/ Premix) 50 mls @ 100 mls/hr IV ONETIME ONE Stop: 10/11/16 07:29 Last Admin: 10/11/16 14:19 Dose: Not Given Lidocaine HCl (Xylocaine-Mpf 1%) Confirm Administered Dose 2 mls @ as directed .ROUTE .STK-MED ONE Stop: 10/11/16 08:34 Lidocaine HCl (Xylocaine-Mpf 1%) Confirm Administered Dose 2 mls @ as directed .ROUTE .STK-MED ONE Stop: 10/11/16 08:52 Dextrose/Lactated Ringer's (Dextrose 5%-Lactated Ringers) 1,000 mls @ 125 mls/ hr IV ASDIRECTED [facility] Stop: 10/11/16 18:50 Last Admin: 10/11/16 13:45 Dose: 125 mls/hr Sodium Chloride (Normal Saline) 1,000 mls @ 999 mls/hr IV .ONETIME [facility] Last Admin: 10/11/16 14:58 Dose: 999 mls/hr Sodium Chloride (Normal Saline) 1,000 mls @ 999 mls/hr IV ONETIME ONE Stop: 10/11/16 20:00 Last Admin: 10/11/16 18:50 Dose: 999 mls/hr Ibuprofen (Motrin) 800 mg PO Q8H [facility] Last Admin: 10/11/16 22:57 Dose: 800 mg Iopamidol (Isovue-370 (76%)) 100 ml IVPUSH ONETIME ONE Stop: 10/11/16 21:03 Last Admin: 10/11/16 21:44 Dose: 100 ml Ketorolac Tromethamine (Toradol) Confirm Administered Dose 30 mg .ROUTE .STK- MED ONE Stop: 10/11/16 07:12 Metoclopramide HCl (Reglan) 10 mg IVPUSH ONETIME ONE Stop: 10/11/16 07:01 Last Admin: 10/11/16 19:33 Dose: Not Given Mometasone Furoate/Formoterol Fumar (Dulera 100-5 Mcg) 2 puff IH DAILY [facility] Last Admin: 10/12/16 17:39 Dose: Not Given Morphine Sulfate (Duramorph Pf) Confirm Administered Dose 10 mg .ROUTE .STK-MED ONE Stop: 10/11/16 07:13 Ondansetron HCl (Zofran) Confirm Administered Dose 4 mg .ROUTE .STK-MED ONE Stop: 10/11/16 07:12 Ondansetron HCl (Zofran) 4 mg IVPUSH ONETIME PRN PRN Reason: Nausea/Vomiting Stop: 10/11/16 12:00 Oxytocin (Pitocin) Confirm Administered Dose 20 unit .ROUTE .STK-MED ONE Stop: 10/11/16 07:12 Propofol (Diprivan 20 Ml) Confirm Administered Dose 200 mg .ROUTE .STK-MED ONE Stop: 10/11/16 08:36 Fluticasone/Salmeterol (Advair Diskus 100-50) 1 puff INH DAILY [facility] Last Admin: 10/12/16 20:32 Dose: 1 puff Sodium Chloride (Saline Flush) 10 ml FLUSH ASDIRECTED PRN PRN Reason: Keep Vein Open Sodium Chloride (Saline Flush) 10 ml FLUSH ONETIME ONE Stop: 10/11/16 21:03 Last Admin: 10/11/16 21:44 Dose: 10 ml Succinylcholine Chloride (Succinylcholine In Ns Pf) Confirm Administered Dose 100 mg .ROUTE .STK-MED ONE Stop: 10/11/16 08:52 - Exam General: Reports: alert, oriented HEENT: Reports: Pupils equal, Pupils reactive, EOMI, Mucous membr. moist/pink Neck: Reports: supple Lungs: Reports: Clear to auscultation, Normal respiratory effort Cardiovascular: Reports: Regular Rate, Regular Rhythm Abdomen: Reports: bowel sounds present, soft, no tenderness, no distension (Female) Exam: Normal External Exam, Normal Speculum Exam, Normal Bimanual Exam Rectal (Female) Exam: Normal Exam, Normal Rectal Tone Back Exam: Reports: Normal Inspection, Full Range of Motion Extremities: Reports: no edema, normal pulses Skin: Reports: warm, dry, intact Wound/Incisions: Reports: healing well Neurological: Reports: no new focal deficit Psy/Mental Status: Reports: alert, normal affect, normal mood *Q Meaningful Use (DIS) - VTE *Q VTE Criteria *Q: - Stroke *Q Stroke Criteria *Q: - AMI *Q AMI Criteria *Q:
[2016-10-13] MEDS: Albuterol 6.7 GM Inhaler INH PRN (08:39)
[2016-10-13] MEDS: Simethicone 80 MG Tab.Chew PO SCH (11:58)
[2016-10-13 13:48] VITALS: BP 138/90
--- NOTE | 2016-10-14 11:13 | CT ---
CT abdomen and pelvis Technique: Multiple axial sections were obtained from above the dome of the diaphragm inferiorly through the pubic symphysis. Intravenous contrast was utilized. No oral contrast has been given. Delayed images were also obtained through the abdomen and pelvis. Findings: Small amount of fluid seen next to the liver and within the pelvis most likely representing small amount of intra-abdominal blood. Thickening of the lower rectus muscles are seen on both sides compatible with rectus muscle hematomas. Soft tissue air noted within the anterior abdominal wall presumably from prior surgery. Surgical material seen within the abdominal wall. Liver shows no focal abnormality. Visualized lung bases are clear. Small amount of blood seen next to the spleen. Previous stomach surgery noted with small hiatal hernia. Previous cholecystectomy is noted. Small 1 cm cyst noted within the left kidney. Kidneys show symmetric contrast enhancement. Contrast noted on delayed images within the bladder. Small amount of air seen within the bladder. Thickening and increased density seen within the lower rectus muscles compatible with rectus muscle hematomas. Uterus is enlarged compatible with state. Low density seen within the endometrial cavity and within the endocervical cavity presumably due to blood. There is a small amount of air being seen within the endocervical cavity and lower uterine cavity. Degenerative change and scoliosis is present within the spine. Impression: 1. Small amount of blood around the liver and spleen and within the pelvis. 2. Lower rectus muscle hematomas. Air within the anterior abdominal wall presumably from previous surgery. 3. Enlarged uterus compatible with state. Low density within the endometrial cavity is seen presumably due to blood. Additional blood felt to be present within the endocervical cavity. Small amount of air noted within the endocervical cavity and lower uterine segment. 4. Other incidental findings as noted above. Diagnostic code #3 Agree with preliminary report issued by [facility] ([facility] preliminary report dictated on 10/11/16, 11:10 PM Central Time)
--- NOTE | 2016-10-14 11:13 | CT ---
CT chest Technique: Multiple axial sections through the chest are obtained. Intravenous contrast was utilized. Findings: Slightly less than optimal opacification of the pulmonary arteries are noted. Findings: Minimal coronary artery calcification is seen. No findings of pulmonary embolism within the segmental or main pulmonary arteries. Sub-segmental pulmonary arteries not optimally seen. No mediastinal or hilar abnormalities are seen. No pericardial thickening is seen. Small amount of blood noted around the liver. Lungs are clear. No pleural effusions are seen. Bone window settings were reviewed which show scattered disc space narrowing and mild endplate spurring within the spine. Impression: 1. No findings of pulmonary embolism within the main or segmental branches. 2. Small amount of blood around the liver again noted. 3. Other findings as noted above. Diagnostic code #3 Agree with preliminary report issued by [facility] ([facility] preliminary report dictated on 10/11/16, 11:02 PM Central Time)
== END 2016-10-13 10:45 | disposition home or self-care (01) | DRG 540 ==
LOC: JD.OB 05:31
PROVIDERS: ADMIT Obstetrics & Gynecology; ATTEND Obstetrics & Gynecology
PROC: 10D00Z1 Extraction of Products of Conception, Low, Open Approach (ICD-10-PCS; principal; 2016-10-11)
DX: O64.1XX0 Obstructed labor due to breech presentation, not applicable or unspecified (principal); O99.214 Obesity complicating childbirth; O99.344 Other mental disorders complicating childbirth; O99.53 Diseases of the respiratory system complicating the puerperium; O99.02 Anemia complicating childbirth; Z98.84 Bariatric surgery status; E66.9 Obesity, unspecified; F32.9 Major depressive disorder, single episode, unspecified; J45.909 Unspecified asthma, uncomplicated; Z3A.39 39 weeks gestation of pregnancy; Z37.0 Single live birth; R06.02 Shortness of breath
CPT/HCPCS: 01961; 36415; 71275; 71275-26; 74177; 74177-26; 85025; 93005; 94640; 94664; 94760; A9270-GY; J0330; J0690; J1100; J1170; J1885; J2270; J2405; J2590; J2704; J3010; J7040; J7042; J7050; J7120; Q9967

== ENCOUNTER → 2022-10-16 | Day surgery (SDC) | payer BC ==
[~2022-10-16] MED LIST changes: +Acetaminophen 325 MG Tab PO SCH; +Cyclobenzaprine 10 MG Tab PO SCH; +Dexamethasone 4 MG/ML 5 ML MDV ONE; +Dexmedetomidine 200 MCG/2 ML SDV ONE; +EPINEPHrine 1 MG/ML SDV ONE; +HYDROmorphone 0.5 MG/0.5 ML Syringe IVPUSH PRN; +HYDROmorphone 0.5 MG/0.5 ML Syringe ONE; +Ketamine 500 mg/10 ML MDV ONE; +Ketorolac 15 MG/ML SDV ONE; -Lactated Ringers 1,000 ML IV SCH; +Lactated Ringers 1,000 ML ONE; +Lidocaine 1% 2 ML ONE; +Midazolam 1 MG/ML 2 ML SDV ONE; +Morphine 8 MG, EPINEPHrine 0.3 MG, Cefuroxime 750 MG, Ketorolac 30 MG, Sodium Chloride ... PRN; +Ondansetron 4 MG/2 ML SDV IVPUSH PRN; +Ondansetron 4 MG/2 ML SDV ONE; +Pregabalin 25 MG Cap PO SCH; +Propofol 200 MG/20 ML SDV ONE; +Ropivacaine 0.5% 5 MG/ML 30 ML SDV ONE; -Sodium Chloride 0.9% 10 ML Syringe FLUSH PRN; +Tranexamic Acid 1,000 MG/10 ML Vial ONE; +Vancomycin 1 GM SDV ONE; +ceFAZolin 2 GM Vial ONE; +fentaNYL 100 MCG/2 ML SDV IVPUSH PRN; +fentaNYL 100 MCG/2 ML SDV ONE; +oxyCODONE 5 MG Tab PO SCH; +oxyCODONE ER 10 MG TAB.ER PO SCH
[2022-10-16 13:08] VITALS: BP 138/78; PULSE 77
== END | disposition home or self-care (01) ==
LOC: JD.SDS 09:00
PROVIDERS: ATTEND Orthopaedic Surgery
DX: M17.12 Unilateral primary osteoarthritis, left knee (principal); M21.062 Valgus deformity, not elsewhere classified, left knee; F41.9 Anxiety disorder, unspecified; G89.29 Other chronic pain; F32.A Depression, unspecified; J45.909 Unspecified asthma, uncomplicated; K21.9 Gastro-esophageal reflux disease without esophagitis; F17.210 Nicotine dependence, cigarettes, uncomplicated; Z88.2 Allergy status to sulfonamides; Z91.048 Other nonmedicinal substance allergy status; Z79.01 Long term (current) use of anticoagulants; Z79.899 Other long term (current) drug therapy
CPT/HCPCS: 0055T; 27447; 64447; 73560; 97116; 97161; A9270; C1713; C1776; J0171; J0690; J0697; J1100; J1170; J1885; J2250; J2270; J2405; J2704; J2795; J3010; J3370; J3490; J7050; J7120; 01402; 01480

== ENCOUNTER 2023-10-01 06:00 | Day surgery (SDC) | payer BC ==
[~2023-10-01 06:00] MED LIST changes: -Acetaminophen 325 MG Tab PO SCH; -Cyclobenzaprine 10 MG Tab PO SCH; -Dexamethasone 4 MG/ML 5 ML MDV ONE; -Dexmedetomidine 200 MCG/2 ML SDV ONE; -EPINEPHrine 1 MG/ML SDV ONE; -HYDROmorphone 0.5 MG/0.5 ML Syringe IVPUSH PRN; -HYDROmorphone 0.5 MG/0.5 ML Syringe ONE; -Ketamine 500 mg/10 ML MDV ONE; -Ketorolac 15 MG/ML SDV ONE; -Lactated Ringers 1,000 ML ONE; -Lidocaine 1% 2 ML ONE; -Midazolam 1 MG/ML 2 ML SDV ONE; -Morphine 8 MG, EPINEPHrine 0.3 MG, Cefuroxime 750 MG, Ketorolac 30 MG, Sodium Chloride ... PRN; -Ondansetron 4 MG/2 ML SDV IVPUSH PRN; -Ondansetron 4 MG/2 ML SDV ONE; -Pregabalin 25 MG Cap PO SCH; -Propofol 200 MG/20 ML SDV ONE; -Ropivacaine 0.5% 5 MG/ML 30 ML SDV ONE; +Sodium Chloride 0.9% 10 ML Syringe FLUSH PRN; +Sodium Chloride 0.9% 10 ML Syringe FLUSH SCH; -Tranexamic Acid 1,000 MG/10 ML Vial ONE; -Vancomycin 1 GM SDV ONE; -ceFAZolin 2 GM Vial ONE; -fentaNYL 100 MCG/2 ML SDV IVPUSH PRN; -fentaNYL 100 MCG/2 ML SDV ONE; -oxyCODONE 5 MG Tab PO SCH; -oxyCODONE ER 10 MG TAB.ER PO SCH
[2023-10-01] MEDS: Lactated Ringers 1,000 ML IV SCH (06:39)
[2023-10-01] MEDS: Pregabalin 25 MG Cap PO SCH (06:39)
[2023-10-01] MEDS ORDERED: Propofol 200 MG/20 ML SDV ONE (06:40)
[2023-10-01] MEDS ORDERED: Midazolam 1 MG/ML 2 ML SDV ONE (06:40)
[2023-10-01] MEDS: Acetaminophen 325 MG Tab PO SCH (06:40)
[2023-10-01] MEDS ORDERED: fentaNYL 250 MCG/5 ML SDV ONE ×2 (06:40→08:05)
[2023-10-01] MEDS: oxyCODONE ER 10 MG TAB.ER PO SCH (06:40)
[2023-10-01] MEDS ORDERED: ceFAZolin 2 GM Vial ONE (06:45)
[2023-10-01] MEDS ORDERED: Phenylephrine 1% 10 MG/ML SDV ONE (06:45)
[2023-10-01] MEDS ORDERED: Rocuronium 50 MG/5 ML Vial ONE (06:45)
[2023-10-01] MEDS ORDERED: Sodium Chloride 0.9% 100 ML ONE (06:45)
[2023-10-01] MEDS ORDERED: Ondansetron 4 MG/2 ML SDV IVPUSH PRN (06:52)
[2023-10-01] MEDS ORDERED: HYDROmorphone 0.5 MG/0.5 ML Syringe IVPUSH PRN (06:52)
[2023-10-01] MEDS ORDERED: Ondansetron 4 MG/2 ML SDV ONE (07:53)
[2023-10-01] MEDS ORDERED: Dexamethasone 4 MG/ML 5 ML MDV ONE (07:53)
[2023-10-01] MEDS: Vancomycin 1 GM SDV ONE (08:35)
[2023-10-01] MEDS: Tranexamic Acid 1,000 MG/10 ML Vial ONE (08:35)
[2023-10-01] MEDS: Morphine 8 MG, EPINEPHrine 0.3 MG, Cefuroxime 750 MG, Ketorolac 30 MG, Sodium Chloride ... PRN (08:40)
[2023-10-01] MEDS ORDERED: Lactated Ringers 1,000 ML IV ONE (09:00)
[2023-10-01] MEDS: fentaNYL 100 MCG/2 ML SDV IVPUSH PRN (09:14)
[2023-10-01] MEDS ORDERED: oxyCODONE 5 MG Tab PO PRN ×2 (09:42→09:49)
[2023-10-01] MEDS: oxyCODONE 5 MG Tab PO PRN (10:10)
[2023-10-01 11:31] VITALS: BP 124/71; PULSE 72
== END 2023-10-01 12:00 | disposition home or self-care (01) ==
LOC: JD.SDS 06:00
PROVIDERS: ATTEND Orthopaedic Surgery
DX: M16.11 Unilateral primary osteoarthritis, right hip (principal); F41.9 Anxiety disorder, unspecified; J45.909 Unspecified asthma, uncomplicated; F32.A Depression, unspecified; K21.9 Gastro-esophageal reflux disease without esophagitis; D50.9 Iron deficiency anemia, unspecified; E87.1 Hypo-osmolality and hyponatremia; Z88.2 Allergy status to sulfonamides; Z91.09 Other allergy status, other than to drugs and biological substances; Z79.899 Other long term (current) drug therapy; Z79.01 Long term (current) use of anticoagulants; Z72.0 Tobacco use
CPT/HCPCS: 0055T; 27130; 36415; 73501; 86850; 86900; 86901; 97110; 97161; A9270; C1713; C1776; J0171; J0690; J0697; J1100; J1885; J2250; J2270; J2371; J2405; J2704; J3010; J3370; J3490; J7120; 01214